=== PATIENT | female | born 1955 | race Caucasian/White ===

== ENCOUNTER 2023-09-08 07:42 | Emergency (ER) | payer MEDICARE ==
[~2023-09-08] VITALS: Ht 175.3 cm; Wt 100.0 kg
[2023-09-08 07:47] VITALS: TEMP 98
[2023-09-08] MEDS ORDERED: ASPI-1444 PO (07:55)
[2023-09-08] MEDS ORDERED: LORA-1000 PO (07:55)
[2023-09-08] MEDS ORDERED: EMPA10TA3 PO (07:55)
[2023-09-08] MEDS ORDERED: METF-81 PO (07:55)
[2023-09-08] MEDS ORDERED: DICY20TA95 PO (07:55)
[2023-09-08] MEDS ORDERED: PREG75 PO (07:55)
[2023-09-08] MEDS ORDERED: ATOR40TA28 PO (07:55)
[2023-09-08] MEDS ORDERED: OMEP20 PO (07:55)
[2023-09-08] MEDS ORDERED: EZET10TA57 PO (07:55)
[2023-09-08] MEDS ORDERED: QUET100T PO (07:55)
[2023-09-08] MEDS ORDERED: INSU100I24 SQ (07:55)
[2023-09-08] MEDS ORDERED: INSU100V SQ (07:55)
[2023-09-08] MEDS ORDERED: VENL-67 PO (07:55)
[2023-09-08 08:08] LABS: COVID AG,FIA SOURCE NASAL SWAB
[2023-09-08 08:13] LABS: EOSINOPHILS % (AUTO) 0.9 % (1.0-6.0); HEMOGLOBIN 12.7 g/dL (12.0-16.0); LYMPHOCYTES % (AUTO) 20.4 % (22.0-44.0); MEAN CORPUSCULAR HEMOGLOBIN 25.5 pg (26.0-34.0); MEAN CORPUSCULAR HGB CONC 31.8 G/dL (31.0-37.0); MEAN CORPUSCULAR VOLUME 80 fL (80-100); MONOCYTES # (AUTO) 0.4 K/uL (0.1-1.0); MONOCYTES % (AUTO) 4.5 % (2.0-9.0); NEUTROPHILS # (AUTO) 7.1 K/uL (1.8-7.7); NEUTROPHILS % (AUTO) 73.2 % (40.0-70.0); PLATELET COUNT (AUTO) 342 K/uL (150-450); RED BLOOD CELL COUNT(AUTO) 4.99 MIL/uL (4.00-5.20); RED CELL DISTRIBUTION WIDTH 21.3 % (11.5-14.5); WHITE BLOOD COUNT (AUTO) 9.7 K/uL (4.5-11.0)
[2023-09-08] MEDS: SODIUM CHLORIDE 0.9% 1,000 ML IV ONE (08:13)
[2023-09-08] MEDS: ONDANSETRON HCL 4 MG/2 ML VIAL IVP ONE (08:14)
[2023-09-08] MEDS: ACETAMINOPHEN 500 MG TABLET PO ONE (08:14)
[2023-09-08] MEDS: FAMOTIDINE 20 MG/2 ML VIAL IVP ONE (08:14)
[2023-09-08 08:19] LABS: CALCIUM, TOTAL 9.1 mg/dL (8.8-10.5); CREATININE 1.21 mg/dL (0.60-1.30); POTASSIUM 3.6 mmol/L (3.5-5.1)
[2023-09-08] MEDS ORDERED: IOHEXOL 350 MG/ML 100 ML VIAL ONE (08:22)
[2023-09-08] MEDS ORDERED: SODIUM CHLORIDE 0.9% 100 ML ONE (08:22)
[2023-09-08 08:26] LABS: TROPONIN I-HIGH SENSITIVITY 7 ng/L (<51)
[2023-09-08 08:30] LABS: SARS-COV2 (COVID) ANTIGEN,FIA Negative (Negative)
[2023-09-08 08:31] LABS: INFLUENZA TYPE A NEGATIVE FOR TYPE A (NEGATIVE); INFLUENZA TYPE B NEGATIVE FOR TYPE B (NEGATIVE)
[2023-09-08 08:44] LABS: ALBUMIN 3.6 g/dL (3.4-5.0); BILIRUBIN,TOTAL 0.4 mg/dL (0.1-1.0)
[2023-09-08] MEDS: MORPHINE SULFATE 2 MG/ML SYRINGE IVP ONE (10:11)
[2023-09-08] MEDS: MAG HYDROX/ALUMINUM HYD/SIMETH 30 ML SUSPENSION UDCUP PO ONE (10:36)
[2023-09-08 11:33] VITALS: BP 142/84; PULSE 74; RESP 16
[2023-09-08] MEDS ORDERED: ONDA-104 PO (11:47)
[2023-09-08] MEDS ORDERED: ACET-3385 PO (11:47)
== END 2023-09-08 12:05 | disposition home or self-care (01) ==
LOC: EMS 07:43
DX: R10.84 Generalized abdominal pain (principal); R06.02 Shortness of breath; F41.9 Anxiety disorder, unspecified; F32.A Depression, unspecified; E11.9 Type 2 diabetes mellitus without complications; E78.00 Pure hypercholesterolemia, unspecified; I10 Essential (primary) hypertension; Z90.49 Acquired absence of other specified parts of digestive tract; Z90.710 Acquired absence of both cervix and uterus; Z87.891 Personal history of nicotine dependence; Z98.890 Other specified postprocedural states; Z20.822 Contact with and (suspected) exposure to COVID-19
CPT/HCPCS: 99285; 74177; 96374; 96375; 71045; 96361; 87426; 80053; 82550; 83690; 83880; 84484; 85025; 87804; 36415; 93005; J3490; J2270; J2405; Q9967; J7030; J7050

== ENCOUNTER 2023-09-18 10:09 | Emergency (ER) | payer MEDICARE ==
[~2023-09-18] VITALS: Ht 180.3 cm; Wt 90.9 kg
[~2023-09-18 10:09] MED LIST: ACET-3385 PO; ASPI-1444 PO; ATOR40TA28 PO; DICY20TA95 PO; EMPA10TA3 PO; EZET10TA57 PO; INSU100I24 SQ; INSU100V SQ; LORA-1000 PO; METF-81 PO; OMEP20 PO; ONDA-104 PO; PREG75 PO; QUET100T PO; VENL-67 PO
[2023-09-18 10:21] VITALS: TEMP 97.9
[2023-09-18] MEDS ORDERED: EMPA25TA3 PO (10:29)
[2023-09-18] MEDS ORDERED: PREG150C47 PO (10:29)
[2023-09-18] MEDS ORDERED: SERT-439 PO (10:29)
[2023-09-18] MEDS ORDERED: ONDA4TAB96 PO (10:29)
[2023-09-18] MEDS ORDERED: DULO-113 PO (10:29)
[2023-09-18] MEDS ORDERED: INSU3INS3 SQ (10:29)
[2023-09-18] MEDS ORDERED: LISI20TA24 PO (10:29)
[2023-09-18] MEDS ORDERED: [UNRECOGNIZED DRUG - CODE] (10:29)
[2023-09-18] MEDS ORDERED: OMEP20CA12 PO (10:29)
[2023-09-18] MEDS ORDERED: ATOR40TA71 PO (10:29)
[2023-09-18] MEDS ORDERED: QUET100T34 PO (10:29)
[2023-09-18 11:36] LABS: BASOPHILS % (AUTO) 0.3 % (0.0-2.0); EOSINOPHILS % (AUTO) 0.2 % (1.0-6.0); HEMATOCRIT 40.1 % (36-46); HEMOGLOBIN 12.6 g/dL (12.0-16.0); LYMPHOCYTES # (AUTO) 1.6 K/uL (1.0-4.8); LYMPHOCYTES % (AUTO) 10.2 % (22.0-44.0); MEAN CORPUSCULAR HEMOGLOBIN 25.2 pg (26.0-34.0); MEAN CORPUSCULAR HGB CONC 31.4 G/dL (31.0-37.0); MEAN CORPUSCULAR VOLUME 80 fL (80-100); MONOCYTES # (AUTO) 0.7 K/uL (0.1-1.0); MONOCYTES % (AUTO) 4.6 % (2.0-9.0); NEUTROPHILS % (AUTO) 84.7 % (40.0-70.0); PLATELET COUNT (AUTO) 309 K/uL (150-450); RED BLOOD CELL COUNT(AUTO) 5.01 MIL/uL (4.00-5.20); RED CELL DISTRIBUTION WIDTH 20.9 % (11.5-14.5); WHITE BLOOD COUNT (AUTO) 15.4 K/uL (4.5-11.0)
[2023-09-18 11:42] LABS: CALCIUM, TOTAL 9.2 mg/dL (8.8-10.5); CREATININE 1.1 mg/dL (0.60-1.30); POTASSIUM 4.4 mmol/L (3.5-5.1)
[2023-09-18 11:46] LABS: ALBUMIN 3.9 g/dL (3.4-5.0); BILIRUBIN,TOTAL 0.5 mg/dL (0.1-1.0); TOTAL PROTEIN, SERUM 8.3 g/dL (6.4-8.2)
[2023-09-18 11:48] LABS: TROPONIN I-HIGH SENSITIVITY 7 ng/L (<51)
[2023-09-18] MEDS ORDERED: SODIUM CHLORIDE 0.9% 100 ML ONE (12:28)
[2023-09-18] MEDS ORDERED: IOHEXOL 350 MG/ML 100 ML VIAL ONE (12:29)
[2023-09-18] MEDS: SODIUM PHOSPHATE,MONO-DIBASIC 133 ML ENEMA PR ONE (13:09)
[2023-09-18] MEDS: PIPERACILLIN/TAZO 3.375 GM/D5W 50 ML IV ONE (13:10)
[2023-09-18] MEDS: SODIUM CHLORIDE 0.9% 1,000 ML IV ONE (13:10)
[2023-09-18 13:18] VITALS: BP 128/64; PULSE 94; RESP 18
[2023-09-18 13:44] LABS: LACTIC ACID 5.3 mmol/L (0.4-2.0)
[2023-09-18] MEDS: SODIUM CHLORIDE 0.9% 2,750 ML IV ONE (13:56)
== END 2023-09-18 14:34 | disposition short-term general hospital (02) ==
LOC: EMS 10:09
DX: R10.9 Unspecified abdominal pain (principal); K56.609 Unspecified intestinal obstruction, unspecified as to partial versus complete obstruction; E11.9 Type 2 diabetes mellitus without complications; E78.00 Pure hypercholesterolemia, unspecified; I10 Essential (primary) hypertension; K21.9 Gastro-esophageal reflux disease without esophagitis; F41.9 Anxiety disorder, unspecified; F32.A Depression, unspecified; Z87.891 Personal history of nicotine dependence; Z90.49 Acquired absence of other specified parts of digestive tract; Z90.710 Acquired absence of both cervix and uterus; Z98.890 Other specified postprocedural states
CPT/HCPCS: 99285; 74177; 96365; 96361; 80053; 83605; 83690; 84484; 85025; 87040; 36415; 74019; 93005; J2543; Q9967; J7030; J7050